=== PATIENT | female | born 1965 | race Caucasian/White ===

== ENCOUNTER 2020-12-23 07:59 | Outpatient (CLI) | payer BC | END 2020-12-23 08:00 | disposition home or self-care (01) | LOC: CSHMAMMO 07:59 | PROVIDERS: ATTEND Obstetrics & Gynecology | DX: Z12.31 Encounter for screening mammogram for malignant neoplasm of breast (principal); Z91.89 Other specified personal risk factors, not elsewhere classified; Z80.3 Family history of malignant neoplasm of breast | CPT/HCPCS: 77063; 77067 ==